=== PATIENT | female | born 1995 | race American Indian/Alaskan Native ===

== ENCOUNTER 2018-10-22 20:00 | Emergency (ER) | payer SELFPAY ==
[2018-10-22 20:12] VITALS: BP 123/78
== END 2018-10-22 22:20 | disposition left against medical advice (07) ==
LOC: ED 20:00
DX: R07.89 Other chest pain (principal); Z53.21 Procedure and treatment not carried out due to patient leaving prior to being seen by health care provider
CPT/HCPCS: 93005; 93010

== ENCOUNTER 2020-06-20 05:58 | Day surgery (SDC) | payer OTHER ==
--- NOTE | 2020-06-11 13:24 | History and Physical Report ---
History of Present Illness Date of examination: 06/11/20 History of present illness: 24 yo has been dealing with pelvic pain and suspected endometriosis pain for a few years. Pain is R>L. Pain is with and without menses and some dyspareunia. Dysmenorrhea noted but it is improved somewhat with her BC. But other pelvic pain is not controlled well. PT had a neg GI workup per pt. PT currently is on Nexplanon the last couple years. Pt did have a 6 months Lupron trial and that did resolve the pain. Pain returned after Lupron wore off. PT had another U/S recently showed small B/L ovarian cysts. Also some heterogeneity in the uterus. Past History Past Medical History: other (anemia and bronchitis in the past.) Past Surgical History: no surgical history Social history: no significant social history Medications and Allergies Allergies Allergy/AdvReac Type Severity Reaction Status Date / Time No Known Allergies Allergy Unverified 10/22/18 20:10 Active Meds: see EMR charting. Review of Systems All systems: negative (except HPI) - Physical Exam Cardiovascular: Regular rate Lungs: Positive: Clear to auscultation, Normal air movement Abdomen: Positive: normal appearance, soft. Negative: tenderness Vulva: both: normal Vagina: Positive: normal moisture Cervix: Negative: lesion, discharge Uterus: Positive: normal size Adnexa: both: tenderness Results All other labs normal. Assessment and Plan - Patient Problems (1) Pelvic pain Status: Acute Plan to address problem: Hx is suggestive of endometriosis, isabel since her trial of Lupron worked. As a result, pt will present on 06/20 for a robotic excision of endometriotic lesions. PT understands that any lesions due to adenomyosis wont be able to be excised. PT fully consented for surgery.
[2020-06-20] MEDS ORDERED: MIDAZOLAM 2 MG/2 ML INJ IV NR (06:00)
[2020-06-20] MEDS ORDERED: LACTATED RINGERS 1,000 ML IV SCH (06:00)
[2020-06-20] MEDS ORDERED: SCOPOLAMINE TRANSDERMAL PATCH 72 HR TD NR (06:00)
[2020-06-20] MEDS ORDERED: GABAPENTIN 300 MG CAP PO NR (06:00)
[2020-06-20] MEDS ORDERED: ACETAMINOPHEN 500 MG TAB PO SCH (06:00)
[2020-06-20] MEDS ORDERED: CELECOXIB 200 MG CAP PO NR (06:00)
[2020-06-20] MEDS ORDERED: BACTERIOSTATIC SODIUM CHLORIDE 0.9% 30 ML VIAL INFILTRATI ONE (06:37)
[2020-06-20 07:14] LABS: Hematocrit 38.2 % (30.3-42.9); Hemoglobin 12.5 gm/dl (10.1-14.3); Mean Corpuscular HGB Conc 33 % (30-34); Mean Corpuscular Volume 85 fl (79-97); Platelet Count 220 K/mm3 (140-440); Red Blood Count 4.48 M/mm3 (3.65-5.03); Red Cell Distribution Width 15.5 % (13.2-15.2)
--- NOTE | 2020-06-20 07:27 | Anesthesia Day of Surgery ---
Anesthesia Day of Surgery - Day of Surgery Patient Examined: Yes Patient H&P Reviewed: Yes Patient is NPO: Yes
--- NOTE | 2020-06-20 07:27 | Anesthesia Consultation ---
Anesthesia Consult and Med Hx Date of service: 06/20/20 - Airway Anesthetic Teeth Evaluation: Good ROM Head & Neck: Adequate Mental/Hyoid Distance: Adequate Mallampati Class: Class I Intubation Access Assessment: Good - Pulmonary Exam CTA: Yes - Cardiac Exam Cardiac Exam: RRR - Pre-Operative Health Status ASA Pre-Surgery Classification: ASA2 Proposed Anesthetic Plan: General - Pulmonary Hx Smoking: No Hx Respiratory Symptoms: Yes (seasonal bronchitis; last episode 01/2020) - Cardiovascular System Hx Hypertension: No - Central Nervous System CVA: No - Endocrine Hx Renal Disease: No Hx Liver Disease: No Hx Insulin Dependent Diabetes: No Hx Non-Insulin Dependent Diabetes: No Hx Thyroid Disease: No - Hematic Hx Anemia: Yes - Other Systems Hx Obesity: No
[2020-06-20] MEDS ORDERED: ONDANSETRON 4 MG/2 ML INJ IV PRN (07:30)
[2020-06-20] MEDS ORDERED: MEPERIDINE 25 MG/1 ML INJ IV PRN (07:30)
[2020-06-20] MEDS ORDERED: HYDROmorphone 1 MG/1 ML INJ IV PRN (07:30)
[2020-06-20] MEDS ORDERED: ONDANSETRON 4 MG/2 ML INJ ONE (07:48)
[2020-06-20] MEDS ORDERED: propofoL 200 MG/20 ML VIAL IV ONE (07:48)
[2020-06-20] MEDS ORDERED: KETOROLAC 30 MG/1 ML INJ ONE (07:48)
[2020-06-20] MEDS ORDERED: HYDROmorphone 1 MG/1 ML INJ ONE (07:48)
[2020-06-20] MEDS ORDERED: ROCURONIUM 50 MG/5 ML INJ IV ONE (07:48)
[2020-06-20] MEDS ORDERED: LIDOCAINE MPF (2%) 20 MG/1 ML VIAL 5 ML ONE (07:48)
[2020-06-20] MEDS ORDERED: dexAMETHasone 20 MG/5 ML VIAL ONE (07:48)
[2020-06-20] MEDS ORDERED: SODIUM CHLORIDE 0.9% IRR 1,000 ML BOTTLE IR ONE (08:09)
[2020-06-20] MEDS ORDERED: BUPIVACAINE/PF (0.5%) 5 MG/1 ML 30 ML VIAL INFILTRATI ONE ×2 (10:10→11:10)
[2020-06-20] MEDS ORDERED: SODIUM CHLORIDE 0.9% IRR 1,500 ML BOTTLE IR ONE (10:10)
[2020-06-20] MEDS ORDERED: SODIUM CHLORIDE 0.9% IRRIG SOLN 2000 ML IR ONE (10:10)
[2020-06-20] MEDS ORDERED: GLYCOPYRROLATE 0.4 MG/2 ML INJ ONE (11:13)
[2020-06-20] MEDS ORDERED: NEOSTIGMINE 10MG/10 ML INJ MDV ONE (11:13)
--- NOTE | 2020-06-20 11:36 | Post Operative Note ---
Date of procedure: 06/20/20 Pre-op diagnosis: Pelvic pain and suspicion for endometriosis Post-op diagnosis: other (Per pathology) Findings: Patient had normal uterus and tubes. Anterior cul-de-sac was within normal limits. Bilateral ovaries seemed to be within normal limits except for bilateral simple ovarian cysts that were small. No endometriotic lesions were suspected on the ovaries. There was no scarring to lyse. There were also no glaringly obvious endometriotic lesions that were classically dark-colored in nature. But in the posterior peritoneum there were multiple areas where the peritoneum appeared thin and or scarred under close inspection with the robotic camera. These areas were particularly on the right peritoneal sidewall, peritoneum over the uterosacral ligaments on both sides, the midline posterior cul-de-sac, and the right posterior cul-de-sac. Procedure: Indication: 24 yo has been dealing with pelvic pain and suspected endometriosis pain for a few years. Pain is R>L. Pain is with and without menses and some dyspareunia. Dysmenorrhea noted but it is improved somewhat with her BC. But other pelvic pain is not controlled well. PT had a neg GI workup per pt. PT currently is on Nexplanon the last couple years. Pt did have a 6 months Lupron trial and that did resolve the pain. Pain returned after Lupron wore off. PT had another U/S recently showed small B/L ovarian cysts. Patient therefore here for procedure below. Procedure: Robotic excision of suspected endometriosis and multiple excisional peritoneal biopsies and bilateral ovarian cystectomies. Patient was taken to the operating room and prepped and draped in the usual fashion. Attention was first turned vaginally for placement of the acorn uterine manipulator. This was done in the usual fashion successfully and without difficulty. Attention was now turned abdominally. In the left upper quadrant about 2 fingerbreadths inferior to the costal margin in the midclavicular line, an 8 mm incision was made. The 8 mm trocar was successfully placed and the placement was confirmed with the camera. Attention was now turned to the placement of the 3 robotic trocars. The 2 lower quadrant ones were about 2 cm superior and medial to the ASIS on each side. These were 8 mm ports. They were placed under direct visualization with without difficulty. The 12 mm umbilical trocar site was also placed under direct visualization successfully and without difficulty. At this point the patient was placed in steep Trendelenburg. The robot was docked to the trochars. At this point I broke scrub and proceeded to the [place] console. First the pelvis was assessed and findings noted above. Good ureteral peristalsis was noted bilaterally both at the beginning of the case and at the end of the case. As noted above in the findings, there were no glaringly obvious areas of endometriosis and no scarring to lyse. But there are multiple suspicious areas for endometriosis on close examination of the peritoneum, particularly posteriorly. There are no suspicious anterior lesions. Using the [place] graspers and EndoShears all of the areas of suspicious endometriosis lesions were excised with peritoneal excisional biopsies. This done mostly with sharp dissection and occasional cautery. Good hemostasis was noted after each excisional biopsy. Once all the suspicious areas were excised, attention was turned to the ovarian cysts on both sides. First on the right than on the left. Cystotomy was performed using EndoShears and then the cyst wall was removed using the graspers. Good hemostasis noted afterwards on both sides. At this point Surgicel was placed over all the areas of the peritoneal excisional biopsies. Good hemostasis noted at this point and the robotic portion of the procedure was concluded. At this point the robot was undocked from the trochars. I scrubbed back in. Laparoscopically good hemostasis still noted throughout. The 12 mm trocar was removed and that site was closed using the Yonatan Urias device and a 0 Vicryl. At this point the abdomen was fully desufflated. The other 3 trochars were removed and those trocar sites were closed using 4-0 Vicryl in a subcuticular fashion as well as the 12 mm site. The acorn uterine manipulator was removed. The procedure was concluded at this point. Patient tolerated the procedure well. All instrument lap counts were correct. Patient taken to the recovery room in stable condition. Anesthesia: GETA Surgeon: MARIEL TURCIOS (assist Dr Teague) Estimated blood loss: minimal Pathology: list (peritoneal biopsies of the right pelvic side wall, right posterior cul de sac, midline posterior cul de sac, and peritoneum of B/L uterosacral ligaments)
--- NOTE | 2020-06-20 11:44 | Short Stay Summary ---
Short Stay Documentation Date of service: 06/20/20 Narrative H&P: Patient here on 06/20/2020 for robotic excisional peritoneal biopsies of suspected areas of endometriosis as well as bilateral ovarian cystectomies. Surgery went well and was uncomplicated. Please see operative report and her H&P for details. Patient sent him in stable condition and advised to follow-up in the office 2 weeks postop - History H&P: dictated Social history: no significant social history - Allergies and Medications Current Medications: Allergies No Known Allergies Allergy (Unverified 10/22/18 20:10) Home Medications Medication Instructions Recorded Confirmed Last Taken Type Etonogestrel [Nexplanon] 68 mg INTRADERMA ONCE 06/16/20 06/16/20 Unknown History Active Medications Acetaminophen (Acetaminophen 500 Mg Tab) 1,000 mg PO PREOP CASIMIRO Stop: 06/20/20 20:00 Last Admin: 06/20/20 07:15 Dose: 1,000 mg Documented by: Celecoxib (Celecoxib 200 Mg Cap) 200 mg PO PREOP NR Stop: 06/20/20 20:00 Last Admin: 06/20/20 07:15 Dose: 200 mg Documented by: Gabapentin (Gabapentin 300 Mg Cap) 300 mg PO PREOP NR Stop: 06/20/20 20:00 Last Admin: 06/20/20 07:15 Dose: 300 mg Documented by: Hydromorphone HCl (Hydromorphone 1 Mg/1 Ml Inj) 0.5 mg IV Q10MIN PRN PRN Reason: Pain , Severe (7-10) Stop: 06/20/20 15:00 Lactated Ringer's (Lactated Ringers) 1,000 mls @ 100 mls/hr IV DIRECT CASIMIRO Stop: 06/20/20 23:59 Last Admin: 06/20/20 07:15 Dose: 100 mls/hr Documented by: Meperidine HCl (Meperidine 25 Mg/1 Ml Inj) 25 mg IV ONCE PRN PRN Reason: Shivering Stop: 06/20/20 19:00 Midazolam HCl (Midazolam 2 Mg/2 Ml Inj) 2 mg IV PREOP NR Stop: 06/20/20 20:00 Last Admin: 06/20/20 08:35 Dose: 2 mg Documented by: Ondansetron HCl (Ondansetron 4 Mg/2 Ml Inj) 4 mg IV ONCE PRN PRN Reason: Nausea And Vomiting Stop: 06/20/20 17:00 Scopolamine (Scopolamine Transdermal Patch 72 Hr) 1 each TD PREOP NR Stop: 06/20/20 23:00 Last Admin: 06/20/20 07:15 Dose: 1 each Documented by: - Disposition Condition at discharge: Stable Disposition: DC-01 TO HOME OR SELFCARE - Discharge Diagnoses (1) Pelvic pain Status: Acute Short Stay Discharge Plan Follow up with: DEBBIE WILLIS MD [Primary Care Provider] - 7 Days
[2020-06-20 13:51] VITALS: BP 125/83
--- NOTE | 2020-06-20 13:53 | Post Anesthesia Evaluation ---
- Post Anesthesia Evaluation Patient Participated: Yes Airway Patent: Yes Stable Respiratory Function: Yes Nausea/Vomiting: No Temp > 96.8F: Yes Pain Manageable: Yes Adequeate Hydration: Yes Anesthesia Complications: No
== END 2020-06-20 13:30 | disposition home or self-care (01) ==
LOC: OR 05:58
PROVIDERS: ATTEND Obstetrics & Gynecology
DX: R10.2 Pelvic and perineal pain (principal); N83.11 Corpus luteum cyst of right ovary; N83.202 Unspecified ovarian cyst, left side; N80.3 Endometriosis of pelvic peritoneum; N76.0 Acute vaginitis; Z98.890 Other specified postprocedural states; Z79.899 Other long term (current) drug therapy
CPT/HCPCS: 36415; 49999; 58662; 81025; 85027; 86850; 86900; 86901; 88305; A4217; J1100; J1170; J1885; J2250; J2405; J2704; J2710; J7120

== ENCOUNTER 2020-07-22 02:01 | Emergency (ER) | payer OTHER ==
[2020-07-22] MEDS ORDERED: ONDANSETRON 4 MG/2 ML INJ IV ONE ×2 (02:19→06:49)
[2020-07-22] MEDS ORDERED: MORPHINE 4 MG/1 ML INJ IV ONE (02:19)
[2020-07-22] MEDS ORDERED: SODIUM CHLORIDE 0.9% 1000 ML 1,000 ML IV ONE (02:19)
--- NOTE | 2020-07-22 02:29 | Event Note ---
ED Screening Note Date of service: 07/22/20 Time: 01:50 ED Screening Note: Patient is a A0 25-year-old -[place] female with past medical history of ovarian cysts who presents to the ED with complaint of acute onset persistent severe right lower quadrant abdominal pain with nausea and vomiting for the last 12 hours. Patient states that the pain was initially mild but subsequently got worse such that about 3 hours ago the pain got worse such that she was unable to sleep with worsening nausea and vomiting. Patient denies dysuria, urinary frequency and urgency, vaginal bleeding, vaginal discharge, dizziness, syncope, chest pain, shortness of breath, abdominal pain, back pain, traumatic injury, heavy lifting, fall, diarrhea, sore throat, vaginal discharge or dyspareunia. This initial assessment/diagnostic orders/clinical plan/treatment(s) is/are subject to change based on patients health status, clinical progression and re- assessment by fellow clinical providers in the ED. Further treatment and workup at subsequent clinical providers discretion. Patient/guardian urged not to elope from the ED as their condition may be serious if not clinically assessed and managed. Initial orders include: CBC, CMP, lipase, UA, hCG, abdomen pelvis CT scan with contrast
[2020-07-22 03:37] LABS: Hematocrit 39.5 % (30.3-42.9); Hemoglobin 12.7 gm/dl (10.1-14.3); Mean Corpuscular HGB Conc 32 % (30-34); Mean Corpuscular Volume 85 fl (79-97); Platelet Count 230 K/mm3 (140-440); Red Blood Count 4.63 M/mm3 (3.65-5.03); Red Cell Distribution Width 15.5 % (13.2-15.2)
[2020-07-22 03:41] LABS: Basophils % (Auto) 0.3 % (0.0-1.8); Lymphocytes % (Auto) 45.3 % (13.4-35.0); Monocytes % (Auto) 7.8 % (0.0-7.3)
[2020-07-22 03:42] LABS: Eosinophils # (Auto) 0.1 K/mm3 (0.0-0.4); Monocytes # (Auto) 0.8 K/mm3 (0.0-0.8)
[2020-07-22 03:51] LABS: Alanine Aminotransferase 26 units/L (7-56); Albumin 4.4 g/dL (3.9-5); BUN/Creatinine Ratio 18; Blood Urea Nitrogen 14 mg/dL (7-17); Calcium 9.2 mg/dL (8.4-10.2); Hemolysis Index 3
--- NOTE | 2020-07-22 04:13 | Emergency Department Report ---
ED Abdominal Pain HPI - General Chief Complaint: Abdominal Pain Stated Complaint: ABD PAIN Source: patient Mode of arrival: Ambulatory Limitations: No Limitations - History of Present Illness Initial Comments: Patient is a A0 25-year-old -[place] female with past medical history of ovarian cysts who presents to the ED with complaint of acute onset persistent severe right lower quadrant abdominal pain with nausea and vomiting for the last 12 hours. Patient states that the pain was initially mild but subsequently got worse such that about 3 hours ago the pain got worse such that she was unable to sleep with worsening nausea and vomiting. Patient denies dysuria, urinary frequency and urgency, vaginal bleeding, vaginal discharge, dizziness, syncope, chest pain, shortness of breath, abdominal pain, back pain, traumatic injury, heavy lifting, fall, diarrhea, sore throat, vaginal discharge or dyspareunia. MD Complaint: abdominal pain (Right lower quadrant pain), other (Intractable nausea and vomiting) -: Sudden, hour(s) (12) Location: RLQ, suprapubic Radiation: RLQ, suprapubic Migration to: no migration Severity: severe Severity scale (0 -10): 8 Quality: cramping, sharp Consistency: constant Improves With: nothing Worsens With: nothing Associated Symptoms: nausea, vomiting, constipation, anorexia. denies: denies other symptoms, diarrhea, fever, chills, dysuria, hematemesis, hematochezia, melena, hematuria - Related Data Home Medications Medication Instructions Recorded Confirmed Last Taken Etonogestrel [Nexplanon] 68 mg INTRADERMA ONCE 06/16/20 06/16/20 Unknown Previous Rx's Medication Instructions Recorded Last Taken Type Ibuprofen [Motrin 800 MG tab] 800 mg PO Q8HR PRN #30 tablet 06/20/20 Unknown Rx oxyCODONE /ACETAMINOPHEN [Percocet 1 tab PO Q4HR PRN #30 tab 06/20/20 Unknown Rx 5/325] Doxycycline Hyclate 100 mg PO Q12H #20 tablet. 07/22/20 Unknown Rx Naproxen 500 mg PO Q12H PRN #30 tablet 07/22/20 Unknown Rx Ondansetron [Zofran Odt] 4 mg PO Q6HR PRN #20 tab.jody 07/22/20 Unknown Rx metroNIDAZOLE [Flagyl] 500 mg PO Q12HR #14 tab 07/22/20 Unknown Rx Allergies Allergy/AdvReac Type Severity Reaction Status Date / Time No Known Allergies Allergy Unverified 10/22/18 20:10 ED Review of Systems ROS: Stated complaint: ABD PAIN Other details as noted in HPI Constitutional: denies: chills, fever Eyes: denies: eye pain, eye discharge, vision change ENT: denies: ear pain, throat pain Respiratory: denies: cough, shortness of breath, wheezing Cardiovascular: denies: chest pain, palpitations Endocrine: no symptoms reported Gastrointestinal: abdominal pain (Right lower quadrant pain), nausea, vomiting. denies: diarrhea Genitourinary: denies: urgency, dysuria, discharge Musculoskeletal: denies: back pain, joint swelling, arthralgia Skin: denies: rash, lesions Neurological: denies: headache, weakness, paresthesias Psychiatric: denies: anxiety, depression Hematological/Lymphatic: denies: easy bleeding, easy bruising ED Past Medical Hx - Past Medical History Hx Hypertension: No Hx Liver Disease: No Hx Renal Disease: No - Social History Smoking Status: Never Smoker Substance Use Type: None - Medications Home Medications: Home Medications Medication Instructions Recorded Confirmed Last Taken Type Etonogestrel [Nexplanon] 68 mg INTRADERMA ONCE 06/16/20 06/16/20 Unknown History Ibuprofen [Motrin 800 MG tab] 800 mg PO Q8HR PRN #30 tablet 06/20/20 Unknown Rx oxyCODONE /ACETAMINOPHEN [Percocet 1 tab PO Q4HR PRN #30 tab 06/20/20 Unknown Rx 5/325] Doxycycline Hyclate 100 mg PO Q12H #20 tablet.dr 07/22/20 Unknown Rx Naproxen 500 mg PO Q12H PRN #30 tablet 07/22/20 Unknown Rx Ondansetron [Zofran Odt] 4 mg PO Q6HR PRN #20 tab.rapdis 07/22/20 Unknown Rx metroNIDAZOLE [Flagyl] 500 mg PO Q12HR #14 tab 07/22/20 Unknown Rx ED Physical Exam - General Limitations: No Limitations General appearance: alert, in no apparent distress - Head Head exam: Present: atraumatic, normocephalic, normal inspection - Eye Eye exam: Present: normal appearance, PERRL, EOMI Pupils: Present: normal accommodation - ENT ENT exam: Present: normal exam, normal orophraynx, mucous membranes moist, TM's normal bilaterally, normal external ear exam - Neck Neck exam: Present: normal inspection, full ROM - Respiratory Respiratory exam: Present: normal lung sounds bilaterally. Absent: respiratory distress, wheezes, rales, rhonchi, chest wall tenderness, accessory muscle use, decreased breath sounds, prolonged expiratory - Cardiovascular Cardiovascular Exam: Present: regular rate, normal rhythm, normal heart sounds. Absent: bradycardia, systolic murmur, diastolic murmur, rubs, gallop - GI/Abdominal GI/Abdominal exam: Present: soft, tenderness (Palpable right lower quadrant tenderness), normal bowel sounds. Absent: guarding, rebound, hyperactive bowel sounds, hypoactive bowel sounds, mass - External exam: Present: other (Female RN detective lieutenant Ms. Anderson present) Speculum exam: Present: vaginal discharge, cervical discharge Bi-manual exam: Present: cervical motion tendernes, adnexal tenderness (Right adnexal tenderness), uterine tenderness - Extremities Exam Extremities exam: Present: normal inspection, full ROM, normal capillary refill - Back Exam Back exam: Present: normal inspection, full ROM. Absent: tenderness, CVA tenderness (R), CVA tenderness (L), muscle spasm, vertebral tenderness - Neurological Exam Neurological exam: Present: alert, oriented X3, CN II-XII intact, normal gait, reflexes normal - Psychiatric Psychiatric exam: Present: normal affect, normal mood - Skin Skin exam: Present: warm, dry, intact, normal color. Absent: rash ED Course Vital Signs 07/22/20 07/22/20 07/22/20 02:17 04:30 05:40 Temperature 98.2 F 97.7 F Pulse Rate 91 H 83 71 Respiratory 14 15 14 Rate Blood Pressure 138/90 Blood Pressure 118/82 110/76 [Left] O2 Sat by Pulse 100 100 100 Oximetry ED Medical Decision Making - Lab Data Result diagrams: 07/22/20 02:39 07/22/20 02:39 - Radiology Data Radiology results: report reviewed, image reviewed Findings [facility] [address] [place] [address] Cat Scan Report Signed Patient: STEVO ESCOBAR MR#: [id number] : 1995 Acct:[id number] Age/Sex: 25 / F ADM Date: 07/22/20 Loc: ED Attending Dr: Ordering Physician: MENDOZA LOYD Date of Service: 07/22/20 Procedure(s): CT abdomen pelvis w con Accession Number(s): [id number] cc: MENDOZA LOYD CT ABDOMEN AND PELVIS WITH CONTRAST INDICATION / CLINICAL INFORMATION: R.L.Q. abdominal pain with nausea and vomiting x 12 hours.. TECHNIQUE: Axial CT images were obtained through the abdomen and pelvis after IV contrast. All CT scans at this location are performed using CT dose reduction for ALARA by means of automated exposure control. COMPARISON: None available. FINDINGS: LOWER CHEST: No significant abnormality LIVER: No significant abnormality GALLBLADDER/BILIARY TREE: No significant abnormality PANCREAS: No significant abnormality SPLEEN: No significant abnormality ADRENALS: No significant abnormality KIDNEYS / URETER: No significant abnormality URINARY BLADDER: Bladder is partially decompressed, though grossly unremarkable. REPRODUCTIVE ORGANS: Thickened, heterogeneous endometrium with small volume endometrial fluid. 2.3 cm right adnexal dominant follicle or simple cyst, benign. No suspicious adnexal mass. STOMACH / SMALL BOWEL: Stomach and small bowel are normal in caliber. No evidence of bowel inflammation. COLON: The colon is unremarkable. The appendix is normal in caliber. LYMPH NODES: No significant adenopathy. VASCULATURE: No significant abnormality. OTHER: No free air, free fluid, or focal fluid collection is identified. SKELETAL SYSTEM: No acute osseous findings. IMPRESSION: 1. Thickened heterogeneous endometrium with small volume endometrial fluid. This is typically physiologic in a premenopausal patient. Recommend clinical correlation to exclude endometritis. Pelvic ultrasound may be helpful for further evaluation. 2. Otherwise, no acute abnormality of the abdomen or pelvis. 3. Normal appendix Signer Name: Shantel Monzon MD Signed: 07/22/2020 4:55 AM Workstation Name: [id number] Transcribed By: URVASHI Dictated By: SHANTEL MONZON MD Electronically Authenticated By: SHANTEL MONZON MD Signed Date/Time: 07/22/20454 DD/ 0 TD/TT: - Medical Decision Making This is a A0 25-year-old -[place] female with past medical history of ovarian cysts who presents to the ED with complaint of acute onset persistent severe right lower quadrant abdominal pain with nausea and vomiting for the last 12 hours. Patient states that the pain was initially mild but subsequently got worse such that about 3 hours ago the pain got worse such that she was unable to sleep with worsening nausea and vomiting. In the ED, patient is alert and oriented x3 and is not in distress. Patient however appears to be in significant pain. Patient was treated for pain and also given antiemetics. Lab test results were reviewed and are all nonactionable. Abdomen pelvis CT scan with contrast shows thickened heterogeneous endometrium with small volume endometrial fluid. This is typically physiologic in a premenopausal patient. Recommend clinical correlation to exclude endometritis. Pelvic ultrasound may be helpful for further evaluation. Otherwise, no acute abnormality of the abdomen or pelvis. Normal appendix. Pelvic exam shows cervical motion tenderness with right adnexal tenderness consistent with acute PID. On reevaluation, patient's pain is well controlled with medications. Patient was treated in the ED with Rocephin and azithromycin empirically for acute PID. Patient was discharged home on pain medications, antiemetics and antibiotics and a was advised to follow-up with her primary care physician or [facility] physician in 5 to 7 days for reevaluation or return to the ED immediately if symptoms get worse. - Differential Diagnosis Appendicitis; PID; ovarian cyst; ; UTI; kidney stones Critical care attestation.: If time is entered above; I have spent that time in minutes in the direct care of this critically ill patient, excluding procedure time. ED Disposition Clinical Impression: Acute abdominal pain in right lower quadrant, Nausea and vomiting in adult patient, Acute pelvic inflammatory disease (PID), Right ovarian cyst, Bacterial vaginosis Disposition: DC-01 TO HOME OR SELFCARE Is pt being admited?: No Does the pt Need Aspirin: No Condition: Stable Instructions: Nausea and Vomiting, Adult, [id number], Abdominal Pain, Adult, [id number], Abdominal Pain (ED), Bacterial Vaginosis (ED), Ovarian Cyst, [id number], Vaginitis, [id number] Additional Instructions: All lab test results were reviewed and are all nonactionable. Abdomen pelvis CT scan with contrast showed no acute abnormalities with a normal appendix. The physical exam is consistent with acute PID. Therefore take medication with food, drink plenty of fluids and follow-up with your [facility] physician or primary care physician in 5 to 7 days for reevaluation. Return to the ED immediately if symptoms get worse. Prescriptions: Doxycycline Hyclate 100 mg PO Q12H #20 tablet. metroNIDAZOLE [Flagyl] 500 mg PO Q12HR #14 tab Naproxen 500 mg PO Q12H PRN #30 tablet PRN Reason: Pain , Severe (7-10) Ondansetron [Zofran Odt] 4 mg PO Q6HR PRN #20 tab.rapdis PRN Reason: Nausea Referrals: [facility] [Provider Group] - 3-5 Days Forms: STI Treatment and Prevention Time of Disposition: 06:46 Print Language: GREENLAND[place]
[2020-07-22 04:46] LABS: Bilirubin,Urine NEG (Negative); Blood,Urine NEG (Negative); Color,Urine Yellow (Yellow); Mucus,Urine FEW /HPF; Protein,Urine <15 mg/dL mg/dL (Negative); Urobilinogen,Urine < 2.0 mg/dL (<2.0)
--- NOTE | 2020-07-22 05:00 | Cat Scan Report ---
CT ABDOMEN AND PELVIS WITH CONTRAST INDICATION / CLINICAL INFORMATION: R.L.Q. abdominal pain with nausea and vomiting x 12 hours.. TECHNIQUE: Axial CT images were obtained through the abdomen and pelvis after IV contrast. All CT sc ans at this location are performed using CT dose reduction for ALARA by means of automated exposure c ontrol. COMPARISON: None available. FINDINGS: LOWER CHEST: No significant abnormality LIVER: No significant abnormality GALLBLADDER/BILIARY TREE: No significant abnormality PANCREAS: No significant abnormality SPLEEN: No significant abnormality ADRENALS: No significant abnormality KIDNEYS / URETER: No significant abnormality URINARY BLADDER: Bladder is partially decompressed, though grossly unremarkable. REPRODUCTIVE ORGANS: Thickened, heterogeneous endometrium with small volume endometrial fluid. 2.3 cm right adnexal dominant follicle or simple cyst, benign. No suspicious adnexal mass. STOMACH / SMALL BOWEL: Stomach and small bowel are normal in caliber. No evidence of bowel inflammati on. COLON: The colon is unremarkable. The appendix is normal in caliber. LYMPH NODES: No significant adenopathy. VASCULATURE: No significant abnormality. OTHER: No free air, free fluid, or focal fluid collection is identified. SKELETAL SYSTEM: No acute osseous findings. IMPRESSION: 1. Thickened heterogeneous endometrium with small volume endometrial fluid. This is typically physiol ogic in a premenopausal patient. Recommend clinical correlation to exclude endometritis. Pelvic ultra sound may be helpful for further evaluation. 2. Otherwise, no acute abnormality of the abdomen or pelvis. 3. Normal appendix Signer Name: Acosta Monzon MD Signed: 07/22/2020 4:55 AM Workstation Name: [id number]
[2020-07-22] MEDS ORDERED: cefTRIAXone/NS 1 GM/50 ML 1 GM/50 ML BAG IV ONE (05:55)
[2020-07-22] MEDS ORDERED: AZITHROMYCIN 250 MG TAB PO ONE (05:55)
[2020-07-22 06:49] VITALS: BP 109/75
[2020-07-22] MEDS ORDERED: KETOROLAC 30 MG/1 ML INJ IV ONE (06:49)
== END 2020-07-22 07:13 | disposition home or self-care (01) ==
LOC: ED 02:01
DX: N73.8 Other specified female pelvic inflammatory diseases (principal); N83.201 Unspecified ovarian cyst, right side; N76.0 Acute vaginitis; B96.89 Other specified bacterial agents as the cause of diseases classified elsewhere; Z79.899 Other long term (current) drug therapy
CPT/HCPCS: 36415; 74177; 80053; 81001; 83690; 84703; 85025; 87210; 87591; 96361; 96365; 96375; 96376; 99284; J0696; J1885; J2270; J2405; J7030; Q9967